=== PATIENT | male | born 1935 | race Two or more races ===

== ENCOUNTER 2017-11-29 18:23 | Emergency (ER) | payer MEDICARE, MEDICAID ==
[~2017-11-29] VITALS: Ht 162.6 cm; Wt 68.0 kg
[2017-11-29] MEDS ORDERED: ASPIR 8181 MG ORAL (18:36)
--- NOTE | 2017-11-29 18:56 | Emergency Room Report ---
History of Present Illness General Chief Complaint: Multiple Trauma/Fall Present Illness HPI 82-year-old male patient presents to ER BIB son complaining of right-sided rib pain status post fall. Patient reports that he was sitting at rest sitting at a restaurant and suddenly felt lightheaded and hit ribs on table. Denies hitting his head or lost consciousness. Patient denies any history of syncope or fainting in the past. Patient reports believes is related to his Neurontin and Cymbalta medication, states he takes medication for numbness and burning sensation in his hands and feet. son reports patient has been taking Neurontin for months and has caused some dizziness in the past, reports has been taking Cymbalta for the past 10 days. denies feeling lightheaded or dizzy at this time. Reports had lab work done a few days ago and results were negative. Son reports more concerned for fracture.. Patient denies lightheadedness currently. Patient reports history of heart attack "years ago". Denies fever, chest pain, shortness of breath. Denies vertigo, tinnitus, hearing loss. (Vikash Rosenberg P.AClare) Allergies: Coded Allergies: No Known Allergies (Unverified , 11/29/17) Patient History Past Medical History: see triage record Reviewed Nursing Documentation: PMH: Agreed; PSxH: Agreed (Vikash Rosenberg P.Salazar) Nursing Documentation-PMH Hx Hypertension: Yes (Vikash Rosenberg P.Salazar) Review of Systems All Other Systems: negative except mentioned in HPI (Vikash Rosenberg P.A.) Physical Exam Vital Signs Date Time Temp Pulse Resp B/P (MAP) Pulse Ox O2 Delivery O2 Flow Rate FiO2 11/29/17 18:30 98.3 56 18 107/62 95 Room Air 98.2 Sp02 EP Interpretation: reviewed, normal General Appearance: well appearing, no apparent distress, alert, GCS 15, non- toxic Head: normocephalic, atraumatic ENT: hearing grossly normal, normal pharynx, no angioedema, normal voice, uvula midline, moist mucus membranes Neck: full range of motion Respiratory: lungs clear, normal breath sounds, no rhonchi, no respiratory distress, no accessory muscle use, no wheezing, other - right ribs TTP; no flail chest; no absent breath sounds Musculoskeletal: back normal, digits/nails normal, gait/station normal, normal range of motion, non-tender, other - no bony deformity, no flail chest Neurologic: alert, oriented x3, responsive, 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 Mosher is my supervising Physician whom patient management has been discussed with. (Vikash Rosenberg P.AClare) Medicare Attestation Please refer to the note for the full history exam and workup Patient's workup including EKG and complaints were followed by myself with Vikash. Patient's EKG shows abnormal findings including possible heart block Patient requires inpatient care Family has been to nursing station several times The report that they are well aware of the patient's other abnormal findings they were aware that leaving from the hospital can lead to worsening symptoms and possible And have chosen to leave AGAINST MEDICAL ADVICE (Gabrielle Mosher DO) Diagnostic Impression: Primary Impression: Rib contusion Additional Impression: Abnormal EKG ER Course Pt. presents to the ED c/o rib pain s/p fall. Ddx considered but are not limited to hx of peripheral neuropathy, AR, arrhythmia, medication use, pneumothorax. No calf swelling, negative Homer's sign, low suspicion for DVT per Well's criteria. On PE, chest is TTP; chest pain likely musculoskeletal in nature. Patient instructed to take NSAIDs as needed for pain symptoms. Vital signs: are WNL, pt. is afebrile Ordered X-ray, labs, troponin, EKG and pain medication. ER COURSE Ibuprofen provided for pain. Labs shows no elevation in WBC or LFTs Troponin within normal limits of negative. CXR shows left lower lung opacity, no pneumothorax per preliminary reading. Rib x-ray negative for fracture per the preliminary reading. Informed patient to take Ibuprofen for pain symptoms. Abnormal EKG, bundle-branch block and T-wave inversions in V2 through V6 Discussed results with patient. Consult with Dr. Mosher. Recommend admission. Patient and son of the patient do not want patient to be admitted. Reports they 're aware of possible EKG abnormalities, states that dizziness is due to medication. Reports that they only wanted x-rays done to rule out fracture. Do not want admission at this time the. OK to leave AMA. Informed patient and father of risks of leaving including complications and, patient signed AMA discharge paperwork. Instructed patient to follow up with primary care provider immediately return to ER for worsening of symptoms including but not limited to chest pain, shortness breath, intractable vomiting, syncope. Patient's son reports that he will take his father to his primary care provider tomorrow. Rx provided for Ibuprofen for pain symptoms. Discharge paperwork provided to patient. - Please note that this Emergency Department Report was dictated using [employer] checker technology software, occasionally this can lead to erroneous entry secondary to interpretation by the dictation equipment. Labs Test 11/29/17 19:00 White Blood Count 6.8 K/UL (4.8-10.8) Red Blood Count 4.83 M/UL (4.70-6.10) Hemoglobin 14.3 G/DL (14.2-18.0) Hematocrit 43.3 % (42.0-52.0) Mean Corpuscular Volume 90 FL (80-99) Mean Corpuscular Hemoglobin 29.7 PG (27.0-31.0) Mean Corpuscular Hemoglobin Concent 33.1 G/DL (32.0-36.0) Red Cell Distribution Width 12.1 % (11.6-14.8) Platelet Count 249 K/UL (150-450) Mean Platelet Volume 7.0 FL (6.5-10.1) Neutrophils (%) (Auto) 57.5 % (45.0-75.0) Lymphocytes (%) (Auto) 30.2 % (20.0-45.0) Monocytes (%) (Auto) 7.5 % (1.0-10.0) Eosinophils (%) (Auto) 3.7 % (0.0-3.0) Basophils (%) (Auto) 1.2 % (0.0-2.0) Sodium Level 139 MMOL/L (136-145) Potassium Level 4.0 MMOL/L (3.5-5.1) Chloride Level 105 MMOL/L (98-107) Carbon Dioxide Level 25 MMOL/L (21-32) Anion Gap 9 mmol/L (5-15) Blood Urea Nitrogen 26 mg/dL (7-18) Creatinine 1.3 MG/DL (0.55-1.30) Estimat Glomerular Filtration Rate mL/min (>60) Glucose Level 108 MG/DL (74-106) Calcium Level 8.9 MG/DL (8.5-10.1) Total Bilirubin 0.3 MG/DL (0.2-1.0) Aspartate Amino Transf (AST/SGOT) 17 U/L (15-37) Alanine Aminotransferase (ALT/SGPT) 30 U/L (12-78) Alkaline Phosphatase 88 U/L (46-116) Troponin I 0.003 ng/mL (0.000-0.056) Total Protein 6.7 G/DL (6.4-8.2) Albumin 3.6 G/DL (3.4-5.0) Globulin 3.1 g/dL Albumin/Globulin Ratio 1.2 (1.0-2.7) (Vikash Rosenberg P.A.) ER Course Entry: 11/30 09:13 We were contacted by radiology this morning, notified of rib fractures on #10 and 11. I did contact the patient himself, also his son. There is no further change in course, however the patient and family was notified of the updated information and will have close outpatient follow-up (Gabrielle Mosher DO) EKG Diagnostic Results Rate: bradycardiac ST Segments: other - right bundle branch block Other Impression T wave inversions in V2-V6 (Vikash Rosenberg P.A.) Rhythm Strip Diag. Results EP Interpretation: yes Rate: 55 PA Scribe Text Cosme Rosenberg PA-C (Vikash Rosenberg P.A.) Chest X-Ray Diagnostic Results Chest X-Ray Diagnostic Results : Chest X-Ray Ordered: Yes # of Views/Limited/Complete: 1 View Indication: Chest Pain EP Interpretation: Yes PA Xray: Interpretation reviewed, by supervising MD, and agrees with findings. Interpretation: no effusion, no pneumothorax, other - LLL opacity Impression: Other - mild CHF PA Scribe Text Cosme Rosenberg PA-C (Vikash Rosenberg P.A.) Other X-Ray Diagnostic Results Other X-Ray Diagnostic Results : X-Ray ordered: right rib # of Views/Limited Vs Complete: 3 View Indication: Pain EP Interpretation: Yes PA Xray: Interpretation reviewed, by supervising MD, and agrees with findings. Interpretation: no dislocation, no soft tissue swelling, no fractures, other - no pneumothorax Impression: No acute disease PA Scribcj Text Cosme Rosenberg PA-C (Vikash Rosenberg) Last Vital Signs Date Time Temp Pulse Resp B/P (MAP) Pulse Ox O2 Delivery O2 Flow Rate FiO2 11/29/17 18:30 98.3 56 18 107/62 95 Room Air 98.2 (Vikash Rosenberg) Disposition: AGAINST MEDICAL ADVICE Scripts Ibuprofen* (MOTRIN*) 400 Mg Tablet 400 MG ORAL Q8H, #30 TAB 0 Refills Prov: Vikash Rosenberg 11/29/17 Patient Instructions: Dizziness, [id number], Rib Contusion, Syncope, Easy-to- Read Additional Instructions: Followup with primary care provider in 2-3 days. Take medications as directed. Patient questions asked and answered. ER precautions given, patient instructed to return to ER immediately for any new or worsening of symptoms including but not limited to chest pain, shortness of breath, intractable vomiting, fainting. Vikash Rosenberg November 29, 2017 18:56 Gabrielle Mosher DO November 29, 2017 21:03
[2017-11-29 19:22] VITALS: BP 107/62
[2017-11-29 19:40] LABS: BASOPHILS % (AUTO) 1.2 % (0.0-2.0); EOSINOPHILS % (AUTO) 3.7 % (0.0-3.0); HEMATOCRIT 43.3 % (42.0-52.0); HEMOGLOBIN 14.3 G/DL (14.2-18.0); LYMPHOCYTES % (AUTO) 30.2 % (20.0-45.0); MEAN CORPUSCULAR VOLUME 90 FL (80-99); MONOCYTES % (AUTO) 7.5 % (1.0-10.0); NEUTROPHILS % (AUTO) 57.5 % (45.0-75.0); PLATELET COUNT 249 K/UL (150-450); RED BLOOD COUNT 4.83 M/UL (4.70-6.10); RED CELL DISTRIBUTION WIDTH 12.1 % (11.6-14.8); WHITE BLOOD COUNT 6.8 K/UL (4.8-10.8)
[2017-11-29 19:44] LABS: ANION GAP 9 mmol/L (5-15); BLOOD UREA NITROGEN 26 mg/dL (7-18); CALCIUM 8.9 MG/DL (8.5-10.1); CARBON DIOXIDE 25 MMOL/L (21-32); CHLORIDE 105 MMOL/L (98-107); CREATININE 1.3 MG/DL (0.55-1.30); SODIUM 139 MMOL/L (136-145)
[2017-11-29 19:48] LABS: ALANINE AMINOTRANSFERASE 30 U/L (12-78); ALBUMIN 3.6 G/DL (3.4-5.0); ALBUMIN/GLOBULIN RATIO 1.2 (1.0-2.7); ALKALINE PHOSPHATASE 88 U/L (46-116); ASPARTATE AMINO TRANSFERASE 17 U/L (15-37); BILIRUBIN,TOTAL 0.3 MG/DL (0.2-1.0)
[2017-11-29 20:07] VITALS: BP 134/47
[2017-11-29] MEDS ORDERED: IBUPROFEN400 MG ORAL (20:36)
[2017-11-29 20:45] VITALS: BP 137/52
--- NOTE | 2017-11-30 09:13 | Diagnostic Imaging Report ---
Indication: Pain Technique: 3 views of the right ribs, one view of the chest Comparison: none Findings: There are nondisplaced fractures of the lateral right 10th and 11th ribs. No gross pneumothorax. 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 Calcified granulomata are seen within the lungs normal heart size. No infiltrates. There is blunting of left costophrenic sulcus, small effusion possible Impression: Positive for nondisplaced fractures of the right 10th and 11th ribs. No evidence of pneumothorax. This was discussed by phone with Dr. Serrato or in the emergency room at the time of interpretation Possible small left pleural effusion
--- NOTE | 2017-12-01 12:45 | Cardiology Report ---
APPROVED REPORT EKG Measurement Heart [id number] Unusual P axis and short VA, probable junctional rhythm with occasional premature ventricular complexes Right bundle branch block Septal infarct, age undetermined Abnormal ECG
== END 2017-11-29 20:50 | disposition left against medical advice (07) ==
LOC: EMR 19:03 → EDBEDREQ 19:49 → CANBEDREQ 20:42 → EMR 20:50
DX: S20.211A Contusion of right front wall of thorax, initial encounter (principal); W19.XXXA Unspecified fall, initial encounter; Y92.511 Restaurant or cafe as the place of occurrence of the external cause; R94.31 Abnormal electrocardiogram [ECG] [EKG]; I10 Essential (primary) hypertension
CPT/HCPCS: 36415; 71045; 80053; 84484; 85025; 93005; 99284